=== PATIENT | female | born 1960 | race Caucasian/White ===

== ENCOUNTER 2021-01-24 15:28 | Outpatient (CLI) | payer BC | END 2021-01-24 15:29 | disposition home or self-care (01) | LOC: CSHULT 15:28 | PROVIDERS: ATTEND Otolaryngology Plastic Surgery within the Head & Neck | DX: E21.3 Hyperparathyroidism, unspecified (principal) | CPT/HCPCS: 76536 ==

== ENCOUNTER 2024-05-03 09:51 | Outpatient (CLI) | payer BC | END 2024-05-03 09:52 | disposition home or self-care (01) | LOC: CSHMAMMO 09:51 | PROVIDERS: ATTEND Family Medicine | DX: Z12.31 Encounter for screening mammogram for malignant neoplasm of breast (principal); Z78.0 Asymptomatic menopausal state; M85.851 Other specified disorders of bone density and structure, right thigh; Z98.890 Other specified postprocedural states | CPT/HCPCS: 77063; 77067; 77080 ==

== ENCOUNTER 2025-05-02 13:02 | Outpatient (CLI) | payer BC | END 2025-05-02 13:03 | disposition home or self-care (01) | LOC: CSHDTY/OP 13:02 | PROVIDERS: ATTEND Nurse Practitioner Family | DX: Z71.3 Dietary counseling and surveillance (principal) | CPT/HCPCS: 97802 ==